=== PATIENT | male | born 1980 | race Hispanic/Latino ===

== ENCOUNTER → 2020-06-08 | Day surgery (SDC) | payer OTHER ==
[~2020-06-08] MED LIST: CALCIUM500 MG PO; CIPRO500 MG PO; FENTANYL CITRATE/PF 100MCG/2 ML INJ ONE; HYOSCYAMINE0.375 MG PO; LEXAPRO10 MG PO; LIDOCAINE HCL 2% LOCAL INJ 5 ML SDV VIAL INJ ONE; MESALAMINE1000 MG RC; METRONIDAZOLE500 MG PO; MIDAZOLAM HCL 2 MG/2 ML VIAL ONE; ONDANSETRON HCL INJ 2MG/ML 2ML 2 MG/ML VIAL ONE; PENTASA500 MG PO; PROPOFOL IV EMULSION 10 MG/ML 20 ML VIAL ONE; TURMERIC 450-51 EACH PO
[2020-06-08 11:00] VITALS: BP 107/60
[2020-06-08 15:15] LABS: C DIFFICILE TOXIN A&B AMP PROB NEGATIVE (NEGATIVE); WBC,FECAL (FECAL LACTOFERRIN) POSITIVE (NEGATIVE)
== END | disposition home or self-care (01) ==
LOC: OR 07:34
PROVIDERS: ATTEND Internal Medicine Gastroenterology
DX: Z09 Encounter for follow-up examination after completed treatment for conditions other than malignant neoplasm (principal); K52.9 Noninfective gastroenteritis and colitis, unspecified; K57.30 Diverticulosis of large intestine without perforation or abscess without bleeding; K63.89 Other specified diseases of intestine; K21.9 Gastro-esophageal reflux disease without esophagitis; K28.9 Gastrojejunal ulcer, unspecified as acute or chronic, without hemorrhage or perforation; M85.80 Other specified disorders of bone density and structure, unspecified site; F32.9 Major depressive disorder, single episode, unspecified
CPT/HCPCS: 45380; 83630; 83993; 87493; J2001; J2250; J2405; J2704; J3010; 45378

== ENCOUNTER 2020-06-09 10:04 | Emergency (ER) | payer OTHER ==
[~2020-06-09] VITALS: Ht 177.8 cm; Wt 71.7 kg
[~2020-06-09 10:04] MED LIST changes: -FENTANYL CITRATE/PF 100MCG/2 ML INJ ONE; -LIDOCAINE HCL 2% LOCAL INJ 5 ML SDV VIAL INJ ONE; -MIDAZOLAM HCL 2 MG/2 ML VIAL ONE; -ONDANSETRON HCL INJ 2MG/ML 2ML 2 MG/ML VIAL ONE; -PROPOFOL IV EMULSION 10 MG/ML 20 ML VIAL ONE
[2020-06-09] MEDS ORDERED: ONDANSETRON HCL INJ 2MG/ML 2ML 2 MG/ML VIAL IV STA (10:13)
[2020-06-09] MEDS ORDERED: SODIUM CHLORIDE 0.9% 1000ML 1,000 ML IV STA (10:13)
[2020-06-09] MEDS ORDERED: PANTOPRAZOLE 40 MG 10ML VIAL IV STA (10:13)
--- OUTSIDE RECORDS SUMMARY | 2020-06-09 10:14 | XMS REPORT | Continuity of Care Document ---
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 Name Role Phone [employer] Exchange Unavailable Un available Problems Problem Status Onset Date Classification Date Reported Comments Source Spontaneous pneumothorax (disorder) Resolved Problem [facility] [place] Medications Medication Details Route Status Patient Instructions Ordering Provider Order Date Source Azathioprine Daily, 0 Refill(s) Active 02/07/2019 [facility] Escitalopram PO, Daily, 0 Refi ll(s) Active 02/07/2019 [facility] mesalamine 0 Refill(s) Active 02/07/2019 [facility] Allergies, Adverse Reactions, Alerts Substance Category Reaction Severity Reaction type Status Date Reported Comments Source No Known Medication Allergies Assertion Drug aller [facility] Immunizations No Data Provided for This Section Results No Data Provided for This Section Pathology Reports No Data Provided for This Section Diagnostic Reports Report Value Date Source Bone Density DXA Dual Energy MA MALE BONE DENSITY ASSESSMENT: 05/28/2020 CLINICAL DATA: Clinical risk for osteoporosis. Osteopenia, Unspecified Location/M85.80 FINDINGS: Bone density evaluation was performed 05/28/2020 on the right femur neck using a Hologic unit. The BMD average for the exam is 0.742 g/cm2. The T-score is -1.40 and the Z-score is -1.20. This matches the World Health Organization's criteria for osteopenia and places the patient at a medium risk for fracture. An additional bone density evaluation was performed 05/28/2020 on the left femur neck using a Hologic unit. The BMD average for the exam is 0.676 g/cm2. The T- score is -1.90 and the Z-score is -1.70. This matches the World Health Organization's criteria for osteopenia and places the patient at a medium risk for fracture. An additional bone density evaluation was performed 05/28/2020 on the right total femur area using a Hologic unit. The BMD average for the exam is 0.841 g/cm2. The T-score is -1.30 and the Z-score is -1.40. This matches the World Health Organization's criteria for osteopenia and places the patient at a medium risk for fracture. An additional bone density evaluation was performed 05/28/2020 on the left total femur area using a Hologic unit. The BMD average for the exam is 0.805 g/cm2. The T-score is -1.50 and the Z-score is -1.60. This matches the World Health Organization's criteria for osteopenia and places the patient at a medium risk for fracture. An additional bone density evaluation was performed 05/28/2020 on the AP L1-L4 region of spine using a Hologic unit. The BMD average for the exam is 0.855 g/cm2. The T-score is -2.10 and the Z-score is -2.10. This matches the World Health Organization's criteria for osteopenia and places the patient at a medium risk for fracture. IMPRESSION: BMD BELOW NORMAL FOR PATIENT AGE BMD is below the range of normal for the patient's age. This patient is a male less than 50 years old. Z-scores not T-scores are used for interpretation. He has bone mineralization below the expected range for age. This exam was interpreted at [id number] at [facility]. Chary wilson/javier:05/28/2020 14:10:53 Drier Feeder(s): Marleny Flores RT(R)(M), [facility] Outpatient Imaging 05/28/2020 [facility] [place] Chest 2 views DX PROCEDURE: CH EST TWO VIEW INDICATION: Left chest pain COMPARISON: None. FINDINGS: Both lungs are clear. No infiltrate or pleural fluid. The heart and mediastinal contours are unremarkable. No acute bony pathology. IMPRESSION: No acute abnormality SL: PINA 02/19/2019 [facility] Hand 3 views DX Exam: Left Ordonez nd 3 views DX Clinical Indication: - fall. Swelling over shaft of fifth metacarpal. Comparison: None. FINDINGS: The 3 views of the hand show normal alignment without fractures or dislocations. The digit and thumb interphalangeal joints are unremarkable. The metacarpophalangeal joints are unremarkable. The carpometacarpal joint regions are unremarkable. There are no radiopaque foreign bodies. The visualized wrist region is grossly unremarkable. Mild soft tissue swelling is appreciated along the medial aspect of the left hand. If there is further concern, recommend follow-up radiographs or bone scan for complete assessment. IMPRESSION: 1. No fractures or dislocation of the le ft hand. 2. Mild soft tissue swelling along the m edial aspect of the left hand. 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 TECHNIQUE: Lumbar spine and left hip bone mineral densities were measured using Lumense Discovery System. FINDINGS: Lumbar spine: L1-L4 average bone mineral density is 1.05 gm/cm2 with a T score of -1.4. Left hip: The left femoral neck and total hip bone mineral densities are 0.81 and 0.86 gm/cm2 with a T score of -2.0 and -1.7 respectively. IMPRESSION: Osteopenia. 12/13/2018 [facility] Consultation Notes No Data Provided for This Section Discharge Summaries No Data Provided for This Section History and Physicals No Data Provided for This Section Vital Signs Vital Sign Value Date Comments Source Heart Rate 62 02/19/2019 [facility] Respitory Rate 18 02/19/2019 [facility] Systolic (mm Hg) 106 02/19/2019 [facility] Diastolic (mm Hg) 63 02/19/2019 [facility] Weight 71.932 02/07/2019 [facility] BMI Calculated 22.75 02/07/2019 [facility] Height 177.8 cm 02/07/2019 [facility] Temperature Oral (F) 97.8 F 02/07/2019 [facility] Systolic (mm Hg) 103 02/07/2019 [facility] Diastolic (mm Hg) 66 02/07/2019 [facility] Encounters Location Location Details Encounter Type Encounter Number Reason For Visit Attending Provider ADM Date DC Date Status Source Outpatient [id number] Andres Foote 02/07/2019 [facility] [place] Outpatient [id number] Andres Foote 02/07/2019 02/08/2019 [facility] Outpatient [id number] José Luis Cowan 02/19/2019 [facility] [place] Outpatient [id number] José Luis Cowan 02/19/2019 02/20/2019 [facility] Outpatient Imaging [place] [facility] [id number] 01 Erik Luo 05/28/2020 05/29/2020 [facility] [place] Outpatient [id number] NURSE VISIT 06/04/2020 [facility] [place] Outpatient [id number] NURSE VISIT 06/04/2020 06/05/2020 [facility] Procedures No Data Provided for This Section Assessment and Plan No Data Provided for This Section Plan of Care No Data Provided for This Section Social History Social History Date Source Social History TypeResponse Smoking Status Never smoker; Exposure to Tobacco Smoke None; Cigarette Smoking Last 365 Days No; Reg Smoking Cessation Counseling No entered on: 02/19/19 02/19/2019 [facility] [place] Social History TypeResponse Smoking Status Never smoker; Exposure to Tobacco Smoke None; Cigarette Smoking Last 365 Days No; Reg Smoking Cessation Counseling No entered on: 02/19/19 02/19/2019 [facility] Family History No Data Provided for This Section Advance Directives No Data Provided for This Section Functional Status No Data Provided for This Section
--- OUTSIDE RECORDS SUMMARY | 2020-06-09 10:14 | XMS REPORT | Summary of Care ---
Author Author [facility] Outpatient Imaging [facility] Organization [facility] Outpatient Imaging [facility] Address Unknown Phone Unavailable Encounter HQ Encntr_alitimothy(FIN) [id number] Date(s): 05/28/20 - 05/28/20 [facility] Outpatient Imaging [place] [address] Discharge Disposition: Home or Self Care Attending Physician: Erik Luo MD Referring Physician: Erik Luo MD Vital Signs No data available for this section Problem List Condition Effective Dates Status Health Status Informan t Spontaneous Resolved pneumothorax(Confirm ed) Allergies, Adverse Reactions, Alerts No Known Medication Allergies Medications No data available for this section Results No data available for this section Immunizations No data available for this section Procedures No data available for this section Social History Social History Type Response Smoking Status Never smoker; Exposure to T obacco Smoke None; Cigarette Smoking Last 365 Days No; Reg Smoking Cessation Counseli ng No entered on: 02/19/19 Assessment and Plan No data available for this section
--- OUTSIDE RECORDS SUMMARY | 2020-06-09 10:14 | XMS REPORT | Summary of Care ---
Author Author [facility] Organization [facility] Address Unknown Phone Unavailable Encounter HQ Encntr_alias(FIN) [id number] Date(s): 06/04/20 - 06/04/20 [facility] [address] [facility] [place] [place] [address]- [phone] Discharge Disposition: Home or Self Care Attending Physician: VISIT, NURSE UCTF Vital Signs No data available for this [...]
[2020-06-09] MEDS ORDERED: DICYCLOMINE HCL 20 MG/2 ML VIAL IM ONE (10:15)
[2020-06-09] MEDS ORDERED: SODIUM CHLORIDE 0.9% 50ML 50 ML ONE (10:29)
[2020-06-09] MEDS ORDERED: DIATRIZOATE MEGL/DIATRIZOA SOD 30 ML BTL PO ONE (10:29)
[2020-06-09] MEDS ORDERED: IOPAMIDOL 370 MG/ML 200 ML INFUS..BTL INJ ONE (10:29)
[2020-06-09 10:30] LABS: BASOPHILS # (AUTO) 0.1 (0.0-0.1); BASOPHILS % 0.6 % (0.0-1.0); EOSINOPHILS # (AUTO) 0.2 (0.0-0.4); EOSINOPHILS % 1.3 % (0.0-6.0); HEMATOCRIT 46.5 % (38.2-49.6); HEMOGLOBIN 15.6 g/dL (14.0-18.0); LYMPHOCYTES # (AUTO) 0.7 (1.0-3.2); LYMPHOCYTES % 3.9 % (18.0-39.1); MEAN CORPUSCULAR HEMOGLOBIN 29.5 pg (28-32); MEAN CORPUSCULAR HGB CONC 33.5 g/dL (31-35); MEAN CORPUSCULAR VOLUME 88.1 fL (81-99); MONOCYTES # (AUTO) 2.7 (0.2-0.8); MONOCYTES % 14.7 % (4.4-11.3); NEUTROPHILS # (AUTO) 14.2 (2.1-6.9); NEUTROPHILS % 78.7 % (38.7-80.0); PLATELET COUNT 252 x10e3/uL (140-360); RED BLOOD COUNT 5.28 x10e6/uL (4.3-5.7); RED CELL DISTRIBUTION WIDTH 12.6 % (11.7-14.4)
[2020-06-09 10:42] LABS: INR 1.18; PROTHROMBIN TIME 15.7 seconds (11.9-14.5)
[2020-06-09 10:43] LABS: PARTIAL THROMBOPLASTIN TIME 36.3 seconds (23.8-35.5)
[2020-06-09 10:49] LABS: ALANINE AMINOTRANSFERASE 22 IU/L (0-55); ALBUMIN 4.3 g/dL (3.5-5.0); ALBUMIN/GLOBULIN RATIO 1.3 (0.8-2.0); ALKALINE PHOSPHATASE 63 IU/L (40-150); ANION GAP 17.8 mmol/L (8-16); BLOOD UREA NITROGEN 7 mg/dL (7-26); BUN/CREATININE RATIO 8 (6-25); CALCIUM 9.5 mg/dL (8.4-10.2); CARBON DIOXIDE 21 mmol/L (22-29); CHLORIDE 101 mmol/L (98-107); CREATININE, SERUM 0.93 mg/dL (0.72-1.25); EST GLOMERULAR FILTRATION RATE > 60 ML/MIN (60-); GLUCOSE 99 mg/dL (74-118); MAGNESIUM 1.8 MG/DL (1.3-2.1); POTASSIUM 3.8 mmol/L (3.5-5.1); SODIUM 136 mmol/L (136-145)
[2020-06-09 11:06] LABS: LYMPHOCYTES % (MANUAL) 3 % (19-48); METAMYELOCYTES % (MANUAL) 3 % (0-0); MONOCYTES % (MANUAL) 14 % (3.4-9.0); MYELOCYTES % (MANUAL) 1 % (0-0); NEUTROPHILS % (MANUAL) 79 % (40-74)
[2020-06-09 11:07] LABS: PLATELET ESTIMATE ADEQUATE; PLATELET MORPHOLOGY COMMENT NORMAL; RBC MORPHOLOGY COMMENT NORMAL
[2020-06-09 11:11] LABS: BILIRUBIN,URINE NEGATIVE (NEGATIVE); CLARITY,URINE CLEAR (CLEAR); COLOR,URINE YELLOW (YELLOW); KETONES,URINE 2+ (NEGATIVE); LEUKOCYTE ESTERASE ,URINE 1+ (NEGATIVE); NITRITE,URINE NEGATIVE (NEGATIVE); PROTEIN,URINE DIPSTICK NEGATIVE (NEGATIVE); URINE UROBILINOGEN 0.2 mg/dL (0.2 - 1)
[2020-06-09 11:17] LABS: BACTERIA,URINE MANY /HPF; EPITHELIAL CELLS,URINE FEW /LPF; MUCUS,URINE FEW (RARE); RENAL EPITHELIAL CELLS,URINE FEW; TRANSITIONAL EPI CELLS,URINE FEW; WBC,URINE (MAN) >50 /HPF (0-5)
[2020-06-09] MEDS ORDERED: PROMETHAZINE 12.5MG/ NACL 0.9% 12.5 MG/50 ML BAG IV ONE (12:30)
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
--- NOTE | 2020-06-09 12:41 | Diagnostic Imaging Report ---
EXAM: CT Abdomen and Pelvis WITH intravenous contrast INDICATION: Abdominal pain COMPARISON: None. TECHNIQUE: Abdomen and pelvis were scanned utilizing a multidetector helical scanner from the lung base to the pubic symphysis after administration of IV contrast. Coronal and sagittal reformations were obtained. Routine protocol was performed. Scan was performed during portal venous phase. IV CONTRAST: 100mL of Isovue 370 ORAL CONTRAST: Gastrografin RADIATION DOSE: Total DLP: 299 mGy*cm Dose modulation, iterative reconstruction, and/or weight based adjustment of the mA/kV was utilized to reduce the radiation dose to as low as reasonably achievable. FINDINGS: LOWER THORAX: Normal. HEPATOBILIARY: Mild hepatic steatosis. No focal liver lesions. No biliary ductal dilation. Unremarkable gallbladder SPLEEN: No splenomegaly. PANCREAS: No focal masses or ductal dilatation. ADRENALS: No adrenal nodules. KIDNEYS/URETERS: No hydronephrosis, stones, or solid mass lesions. PELVIC ORGANS/BLADDER: Unremarkable. PERITONEUM / RETROPERITONEUM: No free air or fluid. LYMPH NODES: No lymphadenopathy. VESSELS: Minimal scattered atherosclerotic calcifications. No abdominal aortic aneurysm. GI TRACT: The colon is filled with fluid. No abnormal bowel thickening. No bowel obstruction. Fluid-filled prominent appendix without associated wall thickening or periappendiceal fat stranding to suggest appendicitis. BONES AND SOFT TISSUES: Unremarkable. IMPRESSION: No free air or free fluid status post recent colonoscopy. Fluid-filled colon as well as a fluid-filled mildly prominent appendix without CT findings of appendicitis. Signed by: Christopher Jones MD on 06/09/2020 12:38 PM
[2020-06-09] MEDS ORDERED: CEFTRIAXONE SOD 1 GM/NS 50 ML 50 ML IV ONE (13:30)
== END 2020-06-09 14:36 | disposition home or self-care (01) ==
LOC: ER 10:11
DX: K51.90 Ulcerative colitis, unspecified, without complications (principal); N39.0 Urinary tract infection, site not specified; R10.9 Unspecified abdominal pain
CPT/HCPCS: 36415; 74177; 80053; 81001; 83690; 83735; 85025; 85610; 85730; 87040; 99284; C9113; J0500; J0696; J2405; J7030; Q9967